=== PATIENT | male | born 1950 | race Caucasian/White ===

== ENCOUNTER 2020-07-02 23:48 | Emergency (ER) | payer MEDICARE, SELFPAY ==
[2020-07-02 23:56] VITALS: BP 120/65; PULSE 102; RESP 18; TEMP 36.6; O2SAT 100
--- NOTE | 2020-07-03 00:37 | ED.UPPEXIN ---
HPI - Extremity Injury (Upper) General Chief Complaint: Extremity Injury, Upper Stated Complaint: rt arm pain Time Seen by Provider: 07/03/20 00:12 History of Present Illness HPI narrative: Severe right elbow pain since about 2100 tonight. Mild at baseline. Severe with any movement or pressure. Mild swelling. no injury. He just finished a steroid taper for treatment of suspected gout in his toe about 1 week ago. Related Data Home Medications Medication Instructions Recorded Confirmed amlodipine 5 mg PO DAILY 07/03/20 diclofenac sodium [Voltaren] 4 g TOPICAL QID 07/03/20 fenofibrate nanocrystallized 145 mg PO DAILY 07/03/20 meloxicam [Mobic] 7.5 mg PO DAILY 07/03/20 Allergies Allergy/AdvReac Type Severity Reaction Status Date / Time No Known Drug Allergies Allergy Mild Other Verified 07/03/20 00:00 Review of Systems Review of Systems: All systems reviewed & are unremarkable except as noted in HPI and below Constitutional: Constitutional: Denies chills, Denies fever(s) and Denies weakness Eyes: Eyes: Reports no additional eye complaints ENT: Reports system reviewed and no additional complaints, except as documented Cardiovascular: Cardiovascular: Denies chest pain Respiratory: Respiratory: Denies dyspnea Gastrointestinal: Gastrointestinal: Denies abdominal pain, Denies nausea and Denies vomiting Genitourinary: Genitourinary: Reports no additional male genitourinary complaints Musculoskeletal: Musculoskeletal: Denies back pain Neurologic: Denies dizziness and Denies weakness [facility] Past Medical History Medical History (Updated 07/03/20 @ 18:32 by Beau Stiles MD) HTN (hypertension) Social History Social History Gender identity (if verbalized by the patient): Male Sexual Orientation (if Verbalized by the Patient): Straight or Heterosexual Exam Const: General: healthy appearing, no acute distress and alert Orientation/consciousness: patient oriented x3 HENMT: Head: normal to inspection Neck: Neck: normal visual inspection Resp: Effort & Inspection: normal respiratory effort Auscultation: clear to auscultation bilaterally Cardio: Rate: regular rate Rhythm: regular rhythm Skin: Other: minimal warmth and hyeremia to right elbow Neuro: General: patient oriented x3 and moves all extremities Extrem: Other: Minimal swelling to right elbow. tenderness worse over insertion of triceps tendon. Full ROM with severe apin Course Vital Signs Vital signs: Vital Signs Temperature 36.6 C 07/02/20 23:56 Pulse Rate 102 H 07/02/20 23:56 Respiratory Rate 18 07/02/20 23:56 Blood Pressure 120/65 07/02/20 23:56 Pulse Oximetry 100 07/02/20 23:56 Temperature 36.6 C 07/02/20 23:56 Pulse Rate 102 H 07/02/20 23:56 Respiratory Rate 18 07/02/20 23:56 Blood Pressure 120/65 07/02/20 23:56 Pulse Oximetry 100 07/02/20 23:56 MDM - Extremity Injury (Upper) MDM Narrative Medical decision making narrative: Pain is consitent with gout flare. Especially likely given completion of recent course of steroids. He already has an appointment to address this issue with his PCP in [place]. No significant effusion for arthrocentesis to be performed. Differential Diagnosis Differential diagnosis: Likely other (GOUT, OA) Discharge Plan Discharge Clinical Impression: Elbow pain, right Patient Disposition: Home, Self-Care Condition: Stable Instructions: Arthralgia (ED) Prescriptions: New hydrocodone-acetaminophen 5-325 mg tablet 1 tablet PO Q6H PRN (Reason: pain) Qty: 5 RF: 0 methylprednisolone [Medrol (Dixon)] 4 mg tablets,dose pack See Rx Instructions .ROUTE .COMPLEX Qty: 21 RF: 0 No Action amlodipine 5 mg Tablet 5 mg PO DAILY RF: 0 meloxicam [Mobic] 7.5 mg Tablet 7.5 mg PO DAILY RF: 0 fenofibrate nanocrystallized 145 mg Tablet 145 mg PO DAILY RF: 0 diclofenac sodium [Voltaren] 1 % Gel 4 g TOPICAL QID RF: 0 Follow-u
[2020-07-03] MEDS: predniSONE 20 MG TABLET 60 MG PO (00:52)
[2020-07-03] MEDS: HYDROcodone/acetaminophen (*CRX) 5-325 MG TABLET 1 TAB PO (00:52)
== END 2020-07-03 01:06 | disposition home or self-care (01) ==
PROVIDERS: Emergency Provider Emergency Medicine
DX: M25.521 Pain in right elbow (principal); I10 Essential (primary) hypertension
CPT/HCPCS: 99283; A9270; J7512

== ENCOUNTER 2020-08-03 15:26 | Emergency (ER) | payer MEDICARE, SELFPAY ==
--- NOTE | ~2020-08-03 | XR_ITS ---
XR foot RT min 3V DATE: 08/03/2020 16:05 INDICATION: Diffuse pain and swelling. Gout. TECHNIQUE: 4 views COMPARISON: 03/13/2009 right foot FINDINGS: There is minimal plantar calcaneal enthesopathy and more prominent posterior calcaneal enth esopathy and some calcification of the distal Achilles tendon. Prominent osteoarthritic changes are noted at the first metatarsal phalangeal joint including some pr ominent dorsal spurring. No fracture, dislocation, periosteal reaction or bone destruction is detected. 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 IMPRESSION: Calcaneal enthesopathy and distal Achilles tendon calcification Prominent osteoarthritis and posterior spurring at the first metatarsophalangea l joint
[2020-08-03 15:46] VITALS: BP 160/71; PULSE 105; RESP 15; TEMP 37.1; O2SAT 95
[2020-08-03 16:07] LABS: Uric Acid 5.1 mg/dL (3.5-8.5)
--- NOTE | 2020-08-03 17:02 | ED.LOWEXIN ---
HPI - Extremity Injury (Lower) General Chief Complaint: Extremity Injury, Lower Stated Complaint: Gout R Foot Time Seen by Provider: 08/03/20 16:16 Source: patient Mode of arrival: ambulatory Limitations: no limitations History of Present Illness HPI Narrative: Patient is a 70-year-old male complaining of right foot and right toe pain that started this afternoon, aching, 10 out of 10 pain nonradiating, denies any injury, history of gout. Patient states that this is his typical gout presentation and last time he was here he was given morphine and steroids which provided immediate relief. Patient denies any calf pain or swelling, fever or chills. Patient denies cold extremity. Related Data Home Medications Medication Instructions Recorded Confirmed amlodipine 5 mg PO DAILY 07/03/20 diclofenac sodium [Voltaren] 4 g TOPICAL QID 07/03/20 fenofibrate nanocrystallized 145 mg PO DAILY 07/03/20 meloxicam [Mobic] 7.5 mg PO DAILY 07/03/20 Allergies Allergy/AdvReac Type Severity Reaction Status Date / Time No Known Drug Allergies Allergy Mild Other Verified 07/03/20 00:00 Review of Systems Review of Systems: All systems reviewed & are unremarkable except as noted in HPI and below PMFSH Past Medical History Medical History (Updated 08/03/20 @ 17:06 by Shon Rojas MD) HTN (hypertension) Social History Social History Gender identity (if verbalized by the patient): Male Comments Past medical history: Gout, arthritis, hypertension Family history: Noncontributory Social history: Non-smoker no EtOH or drug use. Exam Const: General: alert Orientation/consciousness: patient oriented x3 Other: Mild distress due to pain HENMT: Head: normal to inspection Eyes: Conjunctivae: conjunctivae normal Resp: Effort & Inspection: normal respiratory effort Skin: General skin exam: normal color Extrem: Other: Pain on palpation of the right foot first digit, pain on palpation of the whole foot. Negative for any deformity, significant swelling or redness. Neurovascular is intact. Negative for calf pain, negative for Homans' sign. Course Vital Signs Vital signs: Vital Signs Temperature 37.1 C 08/03/20 15:46 Pulse Rate 105 H 08/03/20 15:46 Respiratory Rate 15 08/03/20 15:46 Blood Pressure 160/71 H 08/03/20 15:46 Pulse Oximetry 95 08/03/20 15:46 Temperature 37.1 C 08/03/20 15:46 Pulse Rate 105 H 08/03/20 15:46 Respiratory Rate 15 08/03/20 15:46 Blood Pressure 160/71 H 08/03/20 15:46 Pulse Oximetry 95 08/03/20 15:46 MDM - Extremity Injury (Lower) Differential Diagnosis Differential diagnosis: Likely other (Gout, osteoarthritis, dislocation, fracture) Lab Data Labs: Lab Results 08/03/20 Range/Units 15:51 Uric Acid 5.1 (3.5-8.5) mg/dL Discharge Plan Discharge Clinical Impression: Acute gout Qualifiers: Gout site: foot Gout etiology: idiopathic Laterality: right Qualified Code(s): M10.071 - Idiopathic gout, right ankle and foot Patient Disposition: Home, Self-Care Condition: Improved Instructions: Gout (ED) Additional Instructions: Follow-up with your primary care physician in 1 to 2 days Prescriptions: No Action amlodipine 5 mg Tablet 5 mg PO DAILY RF: 0 meloxicam [Mobic] 7.5 mg Tablet 7.5 mg PO DAILY RF: 0 fenofibrate nanocrystallized 145 mg Tablet 145 mg PO DAILY RF: 0 diclofenac sodium [Voltaren] 1 % Gel 4 g TOPICAL QID RF: 0 hydrocodone-acetaminophen 5-325 mg tablet 1 tablet PO Q6H PRN (Reason: pain) Qty: 5 RF: 0 methylprednisolone [Medrol (Dixon)] 4 mg tablets,dose pack See Rx Instructions .ROUTE .COMPLEX Qty: 21 RF: 0 Follow-up/Referrals: PHYSICIAN NOT ON STAFF,NONSTAFF [Primary Care Provider] - Time of Disposition: 17:06
[2020-08-03] MEDS: MORPHINE SULFATE INJ (*CRX) 10 MG/ML AMP 4 MG IM (17:05)
[2020-08-03] MEDS: ONDANSETRON HCL ODT 4 MG TABLET PO (17:06)
== END 2020-08-03 17:46 | disposition home or self-care (01) ==
PROVIDERS: Emergency Provider Emergency Medicine
DX: M10.071 Idiopathic gout, right ankle and foot (principal); I10 Essential (primary) hypertension
CPT/HCPCS: 36415; 73630; 84550; 96372; 99284; A9270; J1100; J2270